=== PATIENT | female | born 1940 | race Caucasian/White ===

== ENCOUNTER → 2017-02-21 | Outpatient (CLI) | payer OTHER, MEDICARE ==
[~2017-02-21] MED LIST: ACCUNEB SOL3 ML/NE1 IN; ADVAIR 10028 PUFF/IN IN; ASPIRIN 81MG TA81 MG PO; ASPIRIN FOR CHI81 MG PO; DIFLUCAN100 MG PO; HYDROCODONE-APA1 TA2 PO; LIPITOR10 MG PO; LISINOPRIL 5MG T5 MG PO; LOVASTATIN20 MG PO; MIRALAX PO; MONODOX100 MG PO; NAPROSYN500 M1 PO; PEPCID20 MG OR; PREDNISONE 20MG20 MG PO; ROBAXIN-750750 MG PO; SALMETEROL-F28 PUFF2 IN
--- NOTE | 2017-02-22 07:35 | RADIOLOGY REPORT PS360 ---
EXAM: CT LUNG LOW DOSE WO CONTRAST COMPARISON: 12/16/2014 HISTORY: 76-year-old female with greater than 30 pack-year smoking history asymptomatic ORDERING PHYSICIAN: Adilson Granger MD PATIENT AGE: 76 years TECHNIQUE: The exam was performed on a [employer] Light Speed [address] scanner using 2.95 mGy CTDI. A low dose helical CT CHEST was performed on a multi-detector scanner The LDCT was performed in a facility that meets the criteria for the screening program. Data regarding this exam was submitted to ACR which is an approved registry. The order for this exam indicates that it came as a result of a lung cancer screening counseling shard decision-making visit that included all the elements required of such a visit including smoking cessation. The radiologist interpreting this exam meets the [facility] criteria for the LDCT lung cancer screening program. The exam is reported using the Lung-RADS classification scale and reported to the ACR registry. NOTE: This study was performed for the specific purposes of lung cancer screening and is not an alternative to diagnostic chest CT. RADIATION DOSE: CTDI vol(CT dose Index-volume) = 2.95mG DLP (Dose Length Product) = 111.85 mGcm FINDINGS: Centrilobular emphysematous change with scattered areas of fibrosis. 4 mm noncalcified fissural nodule right upper lobe. 4 mm noncalcified nodule within the right middle lobe. 4 mm nodule right lower lobe anteriorly and may actually contain a dc of calcium stable from previous exam. 5 mm nodule right lower lobe posteriorly unchanged. Calcified granuloma left lower lobe subpleural region. Incidental note is made of a thoracic aortic aneurysm involving the aortic arch measured 4.7 cm. This is slightly larger previously measuring 4.3 cm. Is mild dilatation of the lower descending thoracic aorta measuring up to 4 cm previously measuring 3.8 cm There are coronary artery calcifications and there is a small hiatal hernia. There is moderate to severe wedging involving the T12 vertebral body unchanged. IMPRESSION: 1. Lung RADS Category: 2, benign 2. Other findings: Emphysema, coronary artery disease, hiatal hernia. THORACIC AORTIC ANEURYSM SLIGHTLY INCREASED IN SIZE MEASURING UP TO 4.7 CM AT THE AORTIC ARCH PREVIOUSLY 4.3 CM RECOMMENDATIONS: [id number] LDCT screen Appropriate follow-up for slightly enlarging thoracic aortic aneurysm
--- NOTE | 2017-02-22 07:35 | RADIOLOGY REPORT PS360 ---
EXAM: CT LUNG LOW DOSE WO CONTRAST COMPARISON: 12/16/2014 HISTORY: 76-year-old female with greater than 30 pack-year smoking history asymptomatic ORDERING PHYSICIAN: Adilson Granger MD PATIENT AGE: 76 years TECHNIQUE: The exam was performed on a GE Light Speed [address] scanner using 2.95 mGy CTDI. A low dose helical CT CHEST was performed on a multi-detector scanner The LDCT was performed in a facility that meets the criteria for the screening program. Data regarding this exam was submitted to ACR which is an approved registry. The order for this exam indicates that it came as a result of a lung cancer screening counseling shard decision-making visit that included all the elements required of such a visit including smoking cessation. The radiologist interpreting this exam meets the [facility] criteria for the LDCT lung cancer screening program. The exam is reported using the Lung-RADS classification scale and reported to the ACR registry. NOTE: This study was performed for the specific purposes of lung cancer screening and is not an alternative to diagnostic chest CT. RADIATION DOSE: CTDI vol(CT dose Index-volume) = 2.95mG DLP (Dose Length Product) = 111.85 mGcm FINDINGS: Centrilobular emphysematous change with scattered areas of fibrosis. 4 mm noncalcified fissural nodule right upper lobe. 4 mm noncalcified nodule within the right middle lobe. 4 mm nodule right lower lobe anteriorly and may actually contain a dc of calcium stable from previous exam. 5 mm nodule right lower lobe posteriorly unchanged. Calcified granuloma left lower lobe subpleural region. Incidental note is made of a thoracic aortic aneurysm involving the aortic arch measured 4.7 cm. This is slightly larger previously measuring 4.3 cm. Is mild dilatation of the lower descending thoracic aorta measuring up to 4 cm previously measuring 3.8 cm There are coronary artery calcifications and there is a small hiatal hernia. There is moderate to severe wedging involving the T12 vertebral body unchanged. IMPRESSION: 1. Lung RADS Category: 2, benign 2. Other findings: Emphysema, coronary artery disease, hiatal hernia. THORACIC AORTIC ANEURYSM SLIGHTLY INCREASED IN SIZE MEASURING UP TO 4.7 CM AT THE AORTIC ARCH PREVIOUSLY 4.3 CM RECOMMENDATIONS: [id number] LDCT screen Appropriate follow-up for slightly enlarging thoracic aortic aneurysm
== END ==
LOC: RAD 12:33
DX: Z87.891 Personal history of nicotine dependence (principal); Z12.2 Encounter for screening for malignant neoplasm of respiratory organs; J44.9 Chronic obstructive pulmonary disease, unspecified
CPT/HCPCS: G0297

== ENCOUNTER → 2017-03-06 | Outpatient (CLI) | payer OTHER, MEDICARE ==
[2017-03-06 09:30] VITALS: BP 120/65
[2017-03-06 09:40] VITALS: BP 150/90
== END ==
LOC: RT 09:20
DX: J40 Bronchitis, not specified as acute or chronic (principal); J45.909 Unspecified asthma, uncomplicated